=== PATIENT | male | born 1965 | race African-American/Black ===

== ENCOUNTER 2017-08-09 11:11 | Observation (INO) | payer OTHER ==
--- NOTE | 2017-08-09 12:27 | PDOC ---
History of Present Illness - General Chief Complaint: Chest Pain Stated Complaint: CHEST PAIN Time Seen by Provider: 08/09/17 12:05 History Source: Patient Exam Limitations: No Limitations - History of Present Illness Initial Comments: 08/09/17 12:22 51yo M with only history of being pre-diabetic who presents today with L anterior intermittent chest discomfort. Pt states he's had several episodes today which first started while he was watching TV. He states he had some discomfort alongside of diaphoresis which lasted for several seconds and then resolved. Afterwards pt stated he felt a feeling of indigestion and nausea which resolved shortly. Pt reports these episodes happened several times across the day while he was either talking with someone at his [employer] and while driving on the way to the ER. Pt denies any radiation of the pain, prior heart disease, heart disease in his family, history of HTN and history of HLD. Pt denies fever/chills, nausea, visual changes, dizziness, SOB, cough, abdominal pain, dysuria, polyuria, edematous lower extremities in the past, and sick contacts. PCP: Dr. Cruz (who moved to [facility]); in need of PCP Past History - Past Medical History Allergies/Adverse Reactions: Allergies Allergy/AdvReac Type Severity Reaction Status Date / Time No Known Allergies Allergy Verified 08/09/17 11:15 Home Medications: Ambulatory Orders Atorvastatin Ca [Lipitor] 40 mg PO HS 08/09/17 Sitagliptin Phos/Metformin HCl [Janumet 50-500 mg Tablet] 1 each PO BID COPD: No Diabetes: Yes - Surgical History Appendectomy: Yes - Suicide/Smoking/Psychosocial Hx Smoking History: Never smoked Have you smoked in the past 12 months: No Information on smoking cessation initiated: No Hx Alcohol Use: No Drug/Substance Use Hx: No Substance Use Type: None Review of Systems - Review of Systems Able to Perform ROS?: Yes Constitutional: Yes: Diaphoresis. No: Chills, Fever, Malaise, Night Sweats, Weakness HEENTM: No: Blurred Vision, Nose Congestion, Throat Pain Respiratory: No: Cough, Shortness of Breath, SOB with Exertion, Wheezing Cardiac (ROS): Yes: Lightheadedness, Palpitations, Chest Tightness. No: Chest Pain, Syncope ABD/GI: Yes: Nausea, Abdominal cramping. No: Constipated, Diarrhea, Poor Fluid Intake, Vomiting : No: Dysuria, Frequency, Flank Pain Musculoskeletal: No: Back Pain, Neck Pain Integumentary: No: Rash Neurological: No: Headache, Paresthesia, Tingling, Dizziness Psychiatric: No: Anxiety, Depression Hematologic/Lymphatic: No: Easy Bleeding, Easy Bruising *Physical Exam - Vital Signs Last Vital Signs Temp Pulse Resp BP Pulse Ox 98.0 F 100 H 18 142/83 100 08/09/17 11:17 08/09/17 11:17 08/09/17 11:17 08/09/17 11:17 08/09/17 11:17 - Physical Exam Comments: 08/09/17 12:27 GEN: NAD, awake, alert, sitting in bed HEENT: EOMI, REZA, sclera anicteric with some conjunctive injections, moist mucosa Neck: No JVD, Soft, No carotid bruits LUNGS: CTA bilaterally CARDIAC: Tachycardic with regular rhythm no murmurs appreciated ABD: Soft, NT/ND, normoactive BS, no guarding, no rebound EXT: No edema, warm, 2+ DP pulses Heart Score/ECG Review - History History: Highly suspicious - Electrocardiogram EKG: Normal - Age Age: 45-65 - Risk Factors Risk Factors Heart Score: Yes Hx Diabetes Based on the list above the patient has:: 1-2 risk factors - Troponin Troponin: </= normal limit - Score Heart Score - Total: 4 #1 08/09/17 12:30 Sinus tachycardia @ 106bpm, normal axis, normal R-wave progression, MA interval 128ms, no ST abnormalities, no delta waves appreciated, QTc 456ms, no evidence of PVCs ED Treatment Course - LABORATORY CBC & Chemistry Diagram: 08/09/17 12:30 08/09/17 12:20 Medical Decision Making - Medical Decision Making 08/09/17 12:26 Highly suspicious for PVC vs. PAF vs. PAC --R/O ACS episodes --CBC, CMP, Cardiac profile, EKG, CXR --Doubt PE (normal saturation; no risk factors for DVT/coagualopathy) 08/09/17 12:30 EKG - Sinus tachycardia @ 106bpm, normal axis, normal R-wave progression, MA interval 128ms, no ST abnormalities, no delta waves appreciated, QTc 456ms, no evidence of PVCs 08/09/17 14:11 Pt remains without any complaints, Labs unremarkable including cardiac profile HEART Score 4 currently --Will likely obs due for cardiac evaluation with r/o ACS --Most likely will need to be discharged with Holter monitor 08/09/17 14:33 Pt previously took ASA 162mg at home prior to coming to the hospital Contacted admitting team for ACS r/o *DC/Admit/Observation/Transfer Diagnosis at time of Disposition: ACS (acute coronary syndrome) - Discharge Dispostion Condition at time of disposition: Stable Admit: Yes - Referrals - Patient Instructions - Post Discharge Activity
[2017-08-09 13:29] LABS: BASO % 0.4 % (0-2.0); EOS % 0.4 % (0-4.5); HEMATOCRIT 44.7 % (35.4-49); HEMOGLOBIN 15.1 GM/dL (11.7-16.9); LYMPH % 14.5 % (8-40); MCH 28.1 pg (25.7-33.7); MCHC 33.7 g/dl (32.0-35.9); MEAN CELL VOLUME 83.2 fl (80-96); MEAN PLT VOLUME 8.1 fl (7.5-11.1); MONO % 5.2 % (3.8-10.2); NEUT % 79.5 % (42.8-82.8); PLATELET COUNT 272 K/MM3 (134-434); RBC 5.38 M/mm3 (4.00-5.60); RDW 13.4 % (11.9-15.9); WHITE BLOOD COUNT 11.4 K/mm3 (4.0-10.0)
--- NOTE | 2017-08-09 13:35 | PDOC ---
Attending Attestation - Resident Resident Name: Дмитрий Thomas - ED Attending Attestation I have performed the following: I have examined & evaluated the patient, The case was reviewed & discussed with the resident, I agree w/resident's findings & plan, Exceptions are as noted - Medical Decision Making 08/09/17 14:37 51-year-old male with a history of diabetes presents emergency Department with 3 episodes of left-sided chest pain associated with generalized weakness and diaphoresis. Vitals initially with tachycardia to 100, now heart rate is normal. EKG is nonischemic. Differential includes acute coronary syndrome, heart score is 4. PE is a thought given tachycardia, however patient denies shortness of breath and has no known PE risk factors. Patient also not hypoxic. Plan -labs -xr -asa 325mg -admit obs <Kedar Awana - Last Filed: 08/09/17 14:36> - HPI HPI: 08/09/17 14:39 The patient is a 51 year old male, with a significant past medical history of NIDDM, who presents to the emergency department with left anterior chest discomfort since earlier this morning. The patient reports several episodes which began while he was watching TV earlier today. He reports initial episode of 10 seconds of sharp LSCP followed by diaphoresis. After that, he tried to go to [employer] at which point he had a longer episode of CP, this time followed by generalized weakness and diaphoresis again. On the way to the ED, he had a 3rd episode while driving. He reports associated nausea and indigestion which occurred along with each episode but have since resolved. He denies any radiation of pain. The patient denies fever, chills, palpitations, headache, cough, shortness of breath, vomiting, diarrhea, constipation, abdominal pain, dysuria or lower extremity edema. He denies any history of hypertension, dyslipidemia or heart disease. The patient denies any sick contacts or any recent travel. Denies history of smoking. Does not have a PMD as his PMD in the [place] moved 6 months ago. Allergies: None reported. Past Surgical History: Appendectomy. Social History: Non-smoker. Denies alcohol or drug use. PCP: None. - Physicial Exam PE: 08/09/17 14:40 GENERAL: Awake, alert, and fully oriented, in no acute distress. HEAD: No signs of trauma. EYES: PERRLA, EOMI, sclera anicteric, conjunctiva clear. ENT: Auricles normal inspection, hearing grossly normal, nares patent, oropharynx clear without exudates. Moist mucosa. NECK: Normal ROM, supple, no lymphadenopathy, JVD or masses. LUNGS: Breath sounds equal, clear to auscultation bilaterally. No wheezes, and no crackles. HEART: Tachycardic, normal S1 and S2, no murmurs, rubs or gallops. No reproducible CP. ABDOMEN: Soft, nontender, normoactive bowel sounds. No guarding, no rebound. No masses. EXTREMITIES: Normal range of motion, no edema. No clubbing or cyanosis. No cords , erythema, or tenderness. BACK: No midline spinal tenderness in cervical/thoracic/lumbar region. NEUROLOGICAL: Normal speech, cranial nerves intact, negative pronator drift, 5/ 5 strength in all 4 extremities, normal sensation to light touch in all 4 extremities, normal cerebellar exam, normal gait, normal reflexes and tone. SKIN: Warm, dry, normal turgor, no rashes or lesions noted. - Medical Decision Making 08/09/17 14:41 Documentation prepared by Leona Gabriel, acting as medical assisting instructor for Say Awan MD. <Leona Gabriel - Last Filed: 08/09/17 14:41> Heart Score/ECG Review - History History: Highly suspicious - Electrocardiogram EKG: Normal - Age Age: 45-65 - Risk Factors Risk Factors Heart Score: Yes Hx Diabetes Based on the list above the patient has:: 1-2 risk factors - Troponin Troponin: </= normal limit - Score Heart Score - Total: 4 #1 08/09/17 14:37 Twelve-lead EKG was performed and reviewed by me. Sinus tachycardia, rate 106. Normal axis and intervals. No ST elevations. <Say Awan - Last Filed: 08/09/17 14:36>
[2017-08-09 13:55] LABS: ALBUMIN 3.8 g/dl (3.4-5.0); ANION GAP 10 (8-16); BLOOD UREA NITROGEN 8 mg/dL (7-18); CALCIUM 9.2 mg/dL (8.5-10.1); CHLORIDE 103 mmol/L (98-107); CO2 25 mmol/L (21-32); CREATININE 0.9 mg/dL (0.7-1.3); GLUCOSE,RANDOM 188 mg/dL (74-106); POTASSIUM 4.2 mmol/L (3.5-5.1); SGOT/AST 23 U/L (15-37); SGPT/ALT 30 U/L (12-78); SODIUM 138 mmol/L (136-145)
[2017-08-09 14:06] LABS: ALK PHOS 97 U/L (45-117); BILIRUBIN,TOTAL 0.4 mg/dL (0.2-1.0); TOT PROT 8.3 g/dl (6.4-8.2)
[2017-08-09] MEDS ORDERED: ASPIRIN 81 MG CHEWABLE TABLETS PO ONE (14:20)
[2017-08-09] MEDS ORDERED: ASPIRIN COATED 81 MG TABLET.EC ONE (14:30)
[2017-08-09] MEDS ORDERED: ASPIRIN 81 MG CHEWABLE TABLETS ONE (14:31)
--- NOTE | 2017-08-09 17:18 | HP ---
CHIEF COMPLAINT: Chest pain PCP: Dr. Cruz HISTORY OF PRESENT ILLNESS: 51 y.o. M with pmh of DM, HLD, gastritis presented with intermittent chest pain. Patient had an episode of anterior chest pain, nonradiating that lasted a few seconds this morning. Patient took 2 Asa 81mg and the pain resolved. Patient went to [employer] later on in the day and had the same chest pain that occured a few times intermittently for a few seconds each time. After the pain resolved, patient was diaphoretic and nauseous. Patient decided to come to the ER after. Patient endorses 1 prior episode of chest pain months ago at work that was non exertional. Patient also states he had an exercise stress test many yrs ago with his PMD for gastritis, he states the test was normal. Patient denies fever, chills, shortness of breath, dyspnea on exertion, vomiting, diarrhea, constipation, urinary sx. ER course was notable for: (1)trops negative x1 (2)EKG- Sinus tachycardia, no st changes (3)cxr- unremarkable Recent Travel: denies PAST MEDICAL HISTORY: DM, HLD, gastritis PAST SURGICAL HISTORY: appendectomy-- many yrs prior Social History: Smoking: denies Alcohol:rarely Drugs: denuies Family History: Allergies No Known Allergies Allergy (Verified 08/09/17 11:15) HOME MEDICATIONS: Home Medications Home Medication List Medication Instructions Recorded Confirmed Type Atorvastatin Ca [Lipitor] 40 mg PO HS 08/09/17 08/09/17 History Sitagliptin Phos/Metformin HCl 1 each PO BID 08/09/17 08/09/17 History [Janumet 50-500 mg Tablet] REVIEW OF SYSTEMS CONSTITUTIONAL: Absent: fever, chills, diaphoresis, generalized weakness, malaise, loss of appetite, weight change HEENT: Absent: rhinorrhea, nasal congestion, throat pain, throat swelling, difficulty swallowing, mouth swelling, ear pain, eye pain, visual changes CARDIOVASCULAR: Absent: chest pain, syncope, palpitations, irregular heart rate, lightheadedness , peripheral edema RESPIRATORY: Absent: cough, shortness of breath, dyspnea with exertion, orthopnea, wheezing, stridor, hemoptysis GASTROINTESTINAL: Absent: abdominal pain, abdominal distension, nausea, vomiting, diarrhea, constipation, melena, hematochezia GENITOURINARY: Absent: dysuria, frequency, urgency, hesitancy, hematuria, flank pain, genital pain MUSCULOSKELETAL: Absent: myalgia, arthralgia, joint swelling, back pain, neck pain SKIN: Absent: rash, itching, pallor HEMATOLOGIC/IMMUNOLOGIC: Absent: easy bleeding, easy bruising, lymphadenopathy, frequent infections ENDOCRINE: Absent: unexplained weight gain, unexplained weight loss, heat intolerance, cold intolerance NEUROLOGIC: Absent: headache, focal weakness or paresthesias, dizziness, unsteady gait, seizure, mental status changes, bladder or bowel incontinence PSYCHIATRIC: Absent: anxiety, depression, suicidal or homicidal ideation, hallucinations. PHYSICAL EXAMINATION Vital Signs - 24 hr 08/09/17 11:17 Temperature 98.0 F Pulse Rate 100 H Respiratory 18 Rate Blood Pressure 142/83 O2 Sat by Pulse 100 Oximetry (%) GENERAL: Awake, alert, and fully oriented, in no acute distress. HEAD: Normal with no signs of trauma. EYES: Pupils equal, round and reactive to light, extraocular movements intact, sclera anicteric, conjunctiva clear. No lid lag. EARS, NOSE, THROAT: Oropharynx clear without exudates. Moist mucous membranes. NECK: Normal range of motion, supple without lymphadenopathy, JVD, or masses. LUNGS: Breath sounds equal, clear to auscultation bilaterally. No wheezes, and no crackles. No accessory muscle use. HEART: Regular rate and rhythm, normal S1 and S2 without murmur, rub or gallop. No chest wall tenderness ABDOMEN: Soft, nontender, not distended, normoactive bowel sounds, no guarding, no rebound, no masses. No hepatomegaly or splenomegaly. MUSCULOSKELETAL: Normal range of motion at all joints. No bony deformities or tenderness. No CVA tenderness. UPPER EXTREMITIES: 2+ pulses, warm, well-perfused. No cyanosis. No clubbing. No peripheral edema. LOWER EXTREMITIES: 2+ pulses, warm, well-perfused. No calf tenderness. No peripheral edema. NEUROLOGICAL: Cranial nerves II-XII intact. 5/5 strength b/l, sensation intact b/l PSYCHIATRIC: Cooperative. Good eye contact. Appropriate mood and affect. SKIN: Warm, dry, normal turgor, no rashes or lesions noted, normal capillary refill. Laboratory Results - last 24 hr 08/09/17 08/09/17 12:20 12:30 WBC 11.4 H RBC 5.38 Hgb 15.1 Hct 44.7 MCV 83.2 MCH 28.1 MCHC 33.7 RDW 13.4 Plt Count 272 MPV 8.1 Neutrophils % 79.5 Lymphocytes % 14.5 Monocytes % 5.2 Eosinophils % 0.4 Basophils % 0.4 Sodium 138 Potassium 4.2 Chloride 103 Carbon Dioxide 25 Anion Gap 10 BUN 8 Creatinine 0.9 Creat Clearance w eGFR > 60 Random Glucose 188 H Calcium 9.2 Total Bilirubin 0.4 AST 23 ALT 30 Alkaline Phosphatase 97 Creatine Kinase 148 Troponin I < 0.02 Total Protein 8.3 H Albumin 3.8 ASSESSMENT/PLAN: 51 year old M with pmh of diabetes and gastritis presented with intermittent chest pain placed into obs for r/o acs #Chest pain, R/o ACS vs gastritis -tele obs -trend trops/ekg -a1c -lipid profile -Stress test, if positive will consult cardio #Gastritis -protonix 40 mg daily #Diabetes mellitus -BGM achs -ISS achs #HLD -Continue Lipitor 40 mg po hs #FEN/GI -no ivf -wnl -diabetic diet #PPx -early ambulation Dispo: tele obs Visit type - Emergency Visit Emergency Visit: Yes Care time: The patient presented to the Emergency Department on the above date and was hospitalized for further evaluation of their emergent condition. - New Patient This patient is new to me today: Yes Date on this admission: 08/09/17 - Critical Care Critical Care patient: No Hospitalist Screening - Colonoscopy Questionnaire Colonoscopy Questionnaire: Colonoscopy Questionnaire - Patient: 50 - 75 years old and never had a screening colonoscopy: Unknown History of colon or rectal polyps, or CA: Unknown History of IBD, Crohn's disease or UC: Unknown History of abdominal radiation therapy as a child: Unknown - Relative: 1 with colon or rectal CA, or polyps at age 60 or younger: Unknown Colon or rectal CA diagnosed at age 45 or younger: Unknown Multiple relatives with colon or rectal CA: Unknown - Outcome: Screening Result: Negative Screen
--- NOTE | 2017-08-09 18:09 | PN ---
Teaching Attending Note Name of Resident: Phan Weber ATTENDING PHYSICIAN STATEMENT I saw and evaluated the patient. I reviewed the resident's note and discussed the case with the resident. I agree with the resident's findings and plan as documented. SUBJECTIVE CC: CP HPI: 51 y/o pleasant gentleman with h/o DM, Hyperlipidemia and GERD who presented with CP. today he had left sided sharp CP while watching TV in am , lasted few seconds but was sweaty after that. in [employer] later this am , he developed 2 separate episodes back to back of same CP this time with sweating and weakness/fatigue. on the way to ER he had another episode . he denies exertional CP , but has SOB when he climbs more than 2 flights of stairs. last stress by PCP 5 years ago and reportedly is neg. Now he is CP free, no SOB , no palpitations , no DELGADO , no light headedness . he denies recent sx or immobilization. OBJECTIVE: NAD , AAOx3. MMM,, no JVD . Nl oropharynx CV: RRR, no MRG . HR in 70s Lungs: CTAB Ext: no edema or erythema in upper or lower extremities. Abd: soft, Nt, ND ,NL BS neuro: EOMI, round equal pupils reactive to light . tongue and uvula at mid line . sensation to light touch nL. strength 5/5 in upper and lower ext proximally and distally. reflexes: 2+ knee jerk and biceps b/l. ASSESSMENT AND PLAN: 51 y/o pleasant gentleman with h/o DM, Hyperlipidemia and GERD who presented with CP. 1- CP : description is not typical for GERD or ACS. could be MS . but due to his risk factors or DM and Hyperlipidemia and being a male, CAD can't be completely excluded . PE is not in DDx as he is not hypoxic, not tachycardic now ( was 100 at presentation ) , no pleuritic pain and no risk factors like recent sx or immobilization or cancer. WELLS score for PE 1.5, with low clinical suspicion , no further w/u indicated EKG with no ST or TW changes. - trend trop - check stress test ( exercise+ nuclear ) tomorrow if trop remains NL. - cont statin 2- Dm , SSI dispo observe over night
[2017-08-09] MEDS: INSULIN SLIDING SCALE (NOVOLOG) 1 VIAL SQ SCH (21:39)
[2017-08-09] MEDS ORDERED: ATORVASTATIN CA 40 MG TABLET (FP) PO SCH (22:00)
[2017-08-10 00:46] VITALS: BMI 27.5
[2017-08-10] MEDS: INSULIN SLIDING SCALE (NOVOLOG) 1 VIAL SQ SCH ×2 (06:34→11:00)
[2017-08-10 07:40] LABS: BASO % 0.2 % (0-2.0); EOS % 1.2 % (0-4.5); HEMATOCRIT 41.4 % (35.4-49); HEMOGLOBIN 14.3 GM/dL (11.7-16.9); LYMPH % 31.8 % (8-40); MCH 28.4 pg (25.7-33.7); MCHC 34.5 g/dl (32.0-35.9); MEAN CELL VOLUME 82.2 fl (80-96); MONO % 7.7 % (3.8-10.2); NEUT % 59.1 % (42.8-82.8); PLATELET COUNT 268 K/MM3 (134-434); RBC 5.04 M/mm3 (4.00-5.60); RDW 13.1 % (11.9-15.9); WHITE BLOOD COUNT 9.4 K/mm3 (4.0-10.0)
[2017-08-10 07:49] LABS: ANION GAP 8 (8-16); BLOOD UREA NITROGEN 9 mg/dL (7-18); CALCIUM 8.8 mg/dL (8.5-10.1); CHLORIDE 104 mmol/L (98-107); CO2 28 mmol/L (21-32); GLUCOSE,RANDOM 112 mg/dL (74-106); POTASSIUM 4.1 mmol/L (3.5-5.1); SODIUM 140 mmol/L (136-145)
[2017-08-10 07:51] LABS: CREATININE 0.9 mg/dL (0.7-1.3)
[2017-08-10 07:57] LABS: CHOLESTEROL 124 mg/dL (50-200); HDL CHOLESTEROL 29 mg/dL (40-60); TRIGLYCERIDES 120 mg/dL (35-160)
--- NOTE | 2017-08-10 09:32 | EKG ---
Test Reason : Blood Pressure : / mmHG Vent. Rate : 082 BPM Atrial Rate : 082 BPM P-R Int : 146 ms QRS Dur : 086 ms QT Int : 372 ms P-R-T Axes : 059 -14 027 degrees QTc Int : 434 ms NORMAL SINUS RHYTHM NORMAL ECG WHEN COMPARED WITH ECG OF 09-AUG-2017 11:23, NO SIGNIFICANT CHANGE WAS FOUND Confirmed by EDGARDO ESCALONA MD ([id number]) on 08/10/2017 9:32:03 AM Referred By: Confirmed By:EDGARDO ESCALONA MD
--- NOTE | 2017-08-10 09:43 | EKG ---
Test Reason : Blood Pressure : / mmHG Vent. Rate : 106 BPM Atrial Rate : 106 BPM P-R Int : 128 ms QRS Dur : 080 ms QT Int : 344 ms P-R-T Axes : 057 -09 046 degrees QTc Int : 456 ms SINUS TACHYCARDIA OTHERWISE NORMAL ECG NO PREVIOUS ECGS AVAILABLE Confirmed by EDGARDO ESCALONA MD ([id number]) on 08/10/2017 9:43:05 AM Referred By: Confirmed By:EDGARDO ESCALONA MD
[2017-08-10] MEDS ORDERED: PANTOPRAZOLE 40 MG TABLET (FP) PO SCH (10:00)
[2017-08-10 13:51] VITALS: BP 138/80; PULSE 94; TEMP 99.4
--- NOTE | 2017-08-10 14:35 | DS ---
Physical Exam: Selected Entries 08/09/17 08/10/17 08/10/17 11:17 09:00 13:50 Temperature 99.4 F Pulse Rate 100 H 94 H Respiratory 16 Rate Blood Pressure 138/80 O2 Sat by Pulse 96 Oximetry (%) Oxygen Delivery Room Air Method Laboratory Tests 08/09/17 08/09/17 08/10/17 12:20 18:31 00:01 WBC Hgb Hct Plt Count Sodium Potassium Chloride Carbon Dioxide Anion Gap BUN Creatinine Random Glucose Hemoglobin A1c % Troponin I < 0.02 < 0.02 < 0.02 Triglycerides Cholesterol Total LDL Cholesterol HDL Cholesterol 08/10/17 08/10/17 08/10/17 07:07 07:07 07:07 WBC 9.4 Hgb 14.3 Hct 41.4 Plt Count 268 Sodium 140 Potassium 4.1 Chloride 104 Carbon Dioxide 28 Anion Gap 8 BUN 9 Creatinine 0.9 Random Glucose 112 H D Hemoglobin A1c % Troponin I Triglycerides 120 Cholesterol 124 Total LDL Cholesterol 89 HDL Cholesterol 29 L 08/10/17 07:07 WBC Hgb Hct Plt Count Sodium Potassium Chloride Carbon Dioxide Anion Gap BUN Creatinine Random Glucose Hemoglobin A1c % 8.3 H Troponin I Triglycerides Cholesterol Total LDL Cholesterol HDL Cholesterol cxr-negative stress test- no ischemia Ekg- nsr HOSPITAL COURSE: Date of Admission:08/09/17 Date of Discharge: 08/10/17 51 y.o. M with pmh of DM, HLD, gastritis presented with intermittent chest pain observed for r/o acs. Troponins negative x 3. Patient underwent stress test, which was negative. Patient will f/u with pcp for chronic medical conditions. Minutes to complete discharge: 35 Discharge Summary Reason For Visit: ACUTE CORONARY SYNDROME Current Active Problems Diabetes mellitus (Chronic) Hyperlipidemia (Chronic) Condition: Stable - Instructions Diet, Activity, Other Instructions: You were observed in the hospital for chest pain. Your stress test results were negative. Please follow up with a primary care doctor within 1 week. A referral to our resident clinic has been provided for you (Dr. Francis) Continue your home medications as prescribed If you have chest pain, shortness of breath, or any new/worsening symptoms please come back to the hospital immediately. Referrals: Nas Francis MD [Staff Physician] - Disposition: HOME - Home Medications Comprehensive Discharge Medication List: Ambulatory Orders Atorvastatin Ca [Lipitor] 40 mg PO HS 08/09/17 Sitagliptin Phos/Metformin HCl [Janumet 50-500 mg Tablet] 1 each PO BID This patient is new to me today: No Emergency Visit: Yes ED Registration Date: 08/09/17 Care time: The patient presented to the Emergency Department on the above date and was hospitalized for further evaluation of their emergent condition. Critical Care patient: No - Discharge Referral Referred to [facility] Med P.C.: No
--- NOTE | 2017-08-10 14:46 | PN ---
Teaching Attending Note Name of Resident: Phan Weber ATTENDING PHYSICIAN STATEMENT I saw and evaluated the patient. I reviewed the resident's note and discussed the case with the resident. I agree with the resident's findings and plan as documented. SUBJECTIVE: No cp or sob. no fever or chills. OBJECTIVE: NAD , AAOx3. CV: RRR, no MRG . Lungs: CTAB Ext: no edema or erythema ASSESSMENT AND PLAN: 51 y/o pleasant gentleman with h/o DM, Hyperlipidemia and GERD who presented with CP. 1- Atypical CP . noah MS stress test neg . no signs of ischemic on EKG and trop LDL 89 , has not been taking lipitor in past 2 -3 weeks . advised to comply 2- Dm , cont Janumet at [place] Establish care with PCP at [place] Dispo : [facility]
== END 2017-08-10 16:36 | disposition home or self-care (01) ==
LOC: JER 11:11 → JERBED 16:57 → J4S 20:27
PROVIDERS: ADMIT Internal Medicine; ATTEND Internal Medicine
DX: I24.9 Acute ischemic heart disease, unspecified (principal); R00.0 Tachycardia, unspecified; R07.89 Other chest pain; E11.9 Type 2 diabetes mellitus without complications; E78.5 Hyperlipidemia, unspecified; K21.9 Gastro-esophageal reflux disease without esophagitis; Z79.84 Long term (current) use of oral hypoglycemic drugs
CPT/HCPCS: 36415; 71045-TC-FY; 78452-TC; 80048; 80053; 80061; 82550; 82962; 83036; 83721; 84484; 85025; 93005; 93010; 93017; 99285-25; A9502; G0378

== ENCOUNTER 2019-09-29 06:52 | Inpatient (IN) | payer OTHER ==
[2019-09-29 07:17] VITALS: BMI 27.3
[2019-09-29] MEDS ORDERED: ONDANSETRON 4 MG/2 ML VIAL IVPUSH ONE (07:31)
[2019-09-29] MEDS ORDERED: MAG HYDROX/AL HYDROX/SIMETH 30 ML UNIT-DOSE CUP PO ONE (07:31)
[2019-09-29] MEDS ORDERED: SODIUM CHLORIDE 1,000 ML IV STA ×2 (07:31→09:11)
[2019-09-29] MEDS ORDERED: FAMOTIDINE 20 MG/50 ML IVPB 20 MG/50 ML MG IVPB ONE ×3 (07:31→08:16)
[2019-09-29] MEDS ORDERED: ACETAMINOPHEN 1000 MG/100 ML VIAL (NON FORMULARY) IVPB ONE (07:49)
[2019-09-29] MEDS ORDERED: ACETAMINOPHEN INJECTION 100 ML IVPB ONE (07:49)
[2019-09-29] MEDS ORDERED: MAG HYDROX/AL HYDROX/SIMETH 30 ML UNIT-DOSE CUP ONE (07:50)
[2019-09-29] MEDS ORDERED: morphine CARPU-JECT 4 MG/1 ML DISP.SYRIN IVPUSH ONE (08:37)
[2019-09-29 08:44] LABS: BASO % 0.6 % (0-2.0); HEMATOCRIT 50.1 % (35.4-49); HEMOGLOBIN 16.5 GM/dL (11.7-16.9); LYMPH % 6.5 % (8-40); MCH 28.1 pg (25.7-33.7); MEAN CELL VOLUME 85.2 fl (80-96); MEAN PLT VOLUME 8.1 fl (7.5-11.1); MONO % 5.8 % (3.8-10.2); NEUT % 87.1 % (42.8-82.8); PLATELET COUNT 341 K/MM3 (134-434); RBC 5.88 M/mm3 (4.00-5.60); RDW 13.2 % (11.9-15.9); WHITE BLOOD COUNT 24.7 K/mm3 (4.0-10.0)
[2019-09-29 08:52] LABS: INR 1.13 (0.83-1.09); PROTHROMBIN TIME (PATIENT) 13.3 SEC (9.7-13.0)
[2019-09-29 08:55] LABS: ACTIVATED PTT 21.5 SECONDS (25.2-36.5)
[2019-09-29] MEDS ORDERED: morphine SULFATE 4 MG/ML VIAL ONE (09:00)
[2019-09-29] MEDS ORDERED: CEFTRIAXONE 2,000 MG in DEXTROSE 5%-WATER - 50 ML IVPB ONE (09:12)
[2019-09-29 09:16] LABS: ALK PHOS 148 U/L (45-117); ANION GAP 9 MMOL/L (8-16); BLOOD UREA NITROGEN 14.3 mg/dL (7-18); CALCIUM 9.5 mg/dL (8.5-10.1); CHLORIDE 103 mmol/L (98-107); CO2 29 mmol/L (21-32); GLUCOSE,RANDOM 256 mg/dL (74-106); POTASSIUM 3.8 mmol/L (3.5-5.1); SGOT/AST 95 U/L (15-37); SGPT/ALT 92 U/L (13-61); SODIUM 141 mmol/L (136-145)
[2019-09-29 09:28] LABS: LIPASE 8257 U/L (73-393)
[2019-09-29] MEDS ORDERED: LACTATED RINGERS SOLUTION 1,000 ML/1,000 ML INFUS.BAG IV SCH ×3 (09:45→10:45)
[2019-09-29] MEDS ORDERED: CEFTRIAXONE 2 GM/100 ML BAG IVPB ONE (10:16)
[2019-09-29] MEDS ORDERED: ACETAMINOPHEN 1000 MG/100 ML VIAL (NON FORMULARY) IVPB PRN (10:48)
[2019-09-29] MEDS ORDERED: ONDANSETRON 4 MG/2 ML VIAL IM PRN (10:50)
[2019-09-29] MEDS ORDERED: ENOXAPARIN NA (PORCINE) 40 MG/0.4 ML DISP.SYRIN SQ SCH (11:00)
[2019-09-29 12:14] LABS: ANISOCYTOSIS 1+; MACROCYTOSIS 0; PLATELET ESTIMATE NORMAL; TEAR DROP CELLS 1+
[2019-09-29] MEDS ORDERED: HYDROmorphone HCL 2 MG TABLET PO ONE (12:41)
[2019-09-29] MEDS ORDERED: DEXTROSE 5%-WATER - 50 ML IVPB ONE ×2 (14:06→17:08)
[2019-09-29] MEDS ORDERED: PIPERACILLIN/TAZOBACTAM 3.375 GM VIAL IVPB ONE ×2 (14:06→17:08)
[2019-09-29] MEDS: PIPERACILLIN/TAZOB 3.375 GM 3.375 GM in DEXTROSE 5%-WATER - 50 ML IVPB SCH ×2 (14:10→17:16)
[2019-09-29] MEDS: INSULIN SLIDING SCALE (NOVOLOG) 1 VIAL SQ SCH ×3 (14:11→21:44)
[2019-09-29] MEDS ORDERED: MORPHINE SULFATE 2 MG/ML VIAL IVPUSH ONE (19:20)
[2019-09-29] MEDS ORDERED: ONDANSETRON 4 MG/2 ML VIAL IVPUSH PRN (21:07)
[2019-09-29] MEDS ORDERED: INSULIN (NOVOLOG) ASPART 100 UNITS/ML 10ML VIAL ONE (21:40)
[2019-09-29] MEDS: LACTATED RINGERS SOLUTION 1,000 ML/1,000 ML INFUS.BAG IV SCH (21:46)
[2019-09-30] MEDS ORDERED: SODIUM CHLORIDE 500 ML IV STA (00:23)
[2019-09-30] MEDS ORDERED: PIPERACILLIN/TAZOBACTAM 3.375 GM VIAL IVPB ONE ×2 (00:47→08:19)
[2019-09-30] MEDS ORDERED: DEXTROSE 5%-WATER - 50 ML IVPB ONE ×2 (00:48→08:19)
[2019-09-30] MEDS ORDERED: MORPHINE SULFATE 2 MG/ML VIAL IVPUSH PRN (01:00)
[2019-09-30] MEDS: LACTATED RINGERS SOLUTION 1,000 ML/1,000 ML INFUS.BAG IV SCH ×5 (01:16→21:29)
[2019-09-30] MEDS: PIPERACILLIN/TAZOB 3.375 GM 3.375 GM in DEXTROSE 5%-WATER - 50 ML IVPB SCH (03:28)
[2019-09-30] MEDS ORDERED: MORPHINE SULFATE 2 MG/ML VIAL IVPUSH ONE (05:18)
[2019-09-30] MEDS ORDERED: LACTATED RINGERS SOLUTION 1,000 ML/1,000 ML INFUS.BAG IV SCH ×2 (05:21→09:00)
[2019-09-30] MEDS ORDERED: ACETAMINOPHEN 1000 MG/100 ML VIAL (NON FORMULARY) IVPB PRN (05:28)
[2019-09-30] MEDS ORDERED: ONDANSETRON 4 MG/2 ML VIAL IVPUSH PRN ×2 (05:28→20:22)
[2019-09-30] MEDS ORDERED: morphine SULFATE 4 MG/ML VIAL IVPUSH PRN ×3 (05:47→20:22)
[2019-09-30] MEDS: INSULIN SLIDING SCALE (NOVOLOG) 1 VIAL SQ SCH ×4 (06:19→23:32)
[2019-09-30 06:57] LABS: BASO % 0.1 % (0-2.0); HEMOGLOBIN 17.6 GM/dL (11.7-16.9); LYMPH % 4.8 % (8-40); MCH 27.7 pg (25.7-33.7); MCHC 32.5 g/dl (32.0-35.9); MEAN CELL VOLUME 85.2 fl (80-96); MEAN PLT VOLUME 8.4 fl (7.5-11.1); MONO % 7.8 % (3.8-10.2); NEUT % 87.3 % (42.8-82.8); PLATELET COUNT 260 K/MM3 (134-434); RBC 6.33 M/mm3 (4.00-5.60); RDW 14.1 % (11.9-15.9)
[2019-09-30 07:01] LABS: WHITE BLOOD COUNT 30.3 K/mm3 (4.0-10.0)
[2019-09-30 07:09] LABS: CHOLESTEROL 140 mg/dL (50-200); HDL CHOLESTEROL 48 mg/dL (40-60); LDL CHOLESTEROL (ONLY SJRH) 88 mg/dL (5-100); TRIGLYCERIDES 83 mg/dL (0-150)
[2019-09-30] MEDS ORDERED: PT OWN MED DRAWER 7, Y5N ONE ×2 (07:15→16:39)
[2019-09-30 09:16] LABS: ALBUMIN 2.9 g/dl (3.4-5.0); ALK PHOS 109 U/L (45-117); ANION GAP 14 MMOL/L (8-16); BILIRUBIN,TOTAL 2.2 mg/dL (0.2-1); BLOOD UREA NITROGEN 14.5 mg/dL (7-18); CALCIUM 8.6 mg/dL (8.5-10.1); CHLORIDE 111 mmol/L (98-107); CO2 17 mmol/L (21-32); GLUCOSE,RANDOM 199 mg/dL (74-106); LIPASE > 1500 U/L (73-393); POTASSIUM 4.2 mmol/L (3.5-5.1); SGOT/AST 103 U/L (15-37); SGPT/ALT 124 U/L (13-61); SODIUM 142 mmol/L (136-145); TOT PROT 6.2 g/dl (6.4-8.2)
[2019-09-30] MEDS ORDERED: PIPERACILLIN/TAZOB 3.375 GM 3.375 GM in DEXTROSE 5%-WATER - 50 ML IVPB SCH ×2 (10:00→18:00)
[2019-09-30] MEDS ORDERED: ENOXAPARIN NA (PORCINE) 40 MG/0.4 ML DISP.SYRIN SQ SCH (10:00)
[2019-09-30 10:09] LABS: HELMET CELLS 0; HOWELL-JOLLY BODIES 0; MACROCYTOSIS 0; OVALOCYTE 0; PLATELET ESTIMATE NORMAL; ROULEAU 0; SICKELED CELLS 0; TARGET CELLS 0; TEAR DROP CELLS 0; TOXIC GRANULATION 0
[2019-09-30 10:56] LABS: ANISOCYTOSIS 1+
[2019-09-30] MEDS ORDERED: morphine SULFATE 4 MG/ML VIAL IVPUSH SCH (11:45)
[2019-09-30] MEDS ORDERED: MEROPENEM 1 GM VIAL (RESTRICTED TO ID) IVPB ONE (17:20)
[2019-09-30] MEDS ORDERED: DEXTROSE 5%-WATER 100 ML IVPB ONE (17:21)
[2019-09-30] MEDS ORDERED: MEROPENEM 1 GM in DEXTROSE 5%-WATER 100 ML IVPB SCH (18:00)
[2019-09-30] MEDS: MUPIROCIN 2% TOPICAL OINTMENT FOR DECOLONIZATION NS SCH (21:29)
[2019-09-30] MEDS: CHLORHEXIDINE GLUCONATE 4% CLEANSER FOR DECOLONIZATION TP SCH (21:29)
[2019-09-30] MEDS ORDERED: IBUPROFEN 800 MG/8 ML IJ IVPB ONE (23:00)
[2019-10-01] MEDS ORDERED: MEROPENEM 1 GM VIAL (RESTRICTED TO ID) IVPB ONE ×3 (01:03→22:39)
[2019-10-01] MEDS ORDERED: DEXTROSE 5%-WATER 100 ML IVPB ONE ×3 (01:04→22:39)
[2019-10-01] MEDS: MEROPENEM 1 GM in DEXTROSE 5%-WATER 100 ML IVPB SCH ×3 (01:05→19:00)
[2019-10-01] MEDS: LACTATED RINGERS SOLUTION 1,000 ML/1,000 ML INFUS.BAG IV SCH ×3 (01:08→15:40)
[2019-10-01] MEDS ORDERED: PIPERACILLIN/TAZOB 3.375 GM 3.375 GM in DEXTROSE 5%-WATER - 50 ML IVPB SCH (02:00)
[2019-10-01 05:25] LABS: BASO % 0.1 % (0-2.0); HEMATOCRIT 51.1 % (35.4-49); HEMOGLOBIN 16.4 GM/dL (11.7-16.9); LYMPH % 5.5 % (8-40); MCH 27.7 pg (25.7-33.7); MCHC 32.1 g/dl (32.0-35.9); MEAN CELL VOLUME 86.3 fl (80-96); MEAN PLT VOLUME 8.1 fl (7.5-11.1); MONO % 6.3 % (3.8-10.2); NEUT % 88.1 % (42.8-82.8); PLATELET COUNT 179 K/MM3 (134-434); RBC 5.93 M/mm3 (4.00-5.60); RDW 13.9 % (11.9-15.9); WHITE BLOOD COUNT 28.8 K/mm3 (4.0-10.0)
[2019-10-01 05:54] LABS: ALBUMIN 2.2 g/dl (3.4-5.0); BILIRUBIN,TOTAL 2.4 mg/dL (0.2-1); BLOOD UREA NITROGEN 14.7 mg/dL (7-18); CALCIUM 7.8 mg/dL (8.5-10.1); CREATININE 0.8 mg/dL (0.55-1.3); MAGNESIUM 1.5 mg/dL (1.8-2.4); PHOSPHOROUS 1.5 mg/dL (2.5-4.9); POTASSIUM 3.9 mmol/L (3.5-5.1); TOT PROT 5.2 g/dl (6.4-8.2)
[2019-10-01] MEDS: INSULIN SLIDING SCALE (NOVOLOG) 1 VIAL SQ SCH ×4 (06:25→21:20)
[2019-10-01 06:42] LABS: ARTERIAL BLD GAS O2 SATURATION 96.5 mmHg (95-98); ARTERIAL BLOOD GAS BASE EXCESS -2.9 mmol/L (-2-2); ARTERIAL BLOOD GAS PO2 97.9 mmHg (80-100); ARTERIAL BLOOD GAS pH 7.272 (7.350-7.450)
[2019-10-01 06:55] LABS: ALLENS TEST POSITIVE
[2019-10-01] MEDS ORDERED: KCL 10 MEQ IVPB 10 MEQ/100 ML INFUS.BAG IVPB SCH (08:30)
[2019-10-01] MEDS ORDERED: MAGNESIUM SULF 50% (8.12 MEQ/2 ML-1 GM VIAL) IVPB ONE (08:30)
[2019-10-01] MEDS ORDERED: IBUPROFEN 800 MG/8 ML IJ IVPB ONE (08:58)
[2019-10-01] MEDS ORDERED: POTASSIUM PHOSPHATE 20 MM in DEXTROSE 5%-WATER - 250 ML IVPB ONE (09:00)
[2019-10-01] MEDS ORDERED: POTASSIUM PHOSPHATE 20 MM in SODIUM CHLORIDE 250 ML IVPB ONE (09:00)
[2019-10-01] MEDS: PANTOPRAZOLE SODIUM 40 MG VIAL IVPUSH SCH (09:30)
[2019-10-01] MEDS: ENOXAPARIN NA (PORCINE) 40 MG/0.4 ML DISP.SYRIN SQ SCH (10:12)
[2019-10-01] MEDS: MUPIROCIN 2% TOPICAL OINTMENT FOR DECOLONIZATION NS SCH ×2 (12:06→21:27)
[2019-10-01 12:14] LABS: ANISOCYTOSIS 0; MACROCYTOSIS 0; PLATELET ESTIMATE NORMAL
[2019-10-01] MEDS ORDERED: VASOPRESSIN 20 UNITS/ML VIAL IV ONE (16:35)
[2019-10-01 17:41] LABS: ARTERIAL BLD GAS O2 SATURATION 95.8 mmHg (95-98); ARTERIAL BLOOD GAS BASE EXCESS -1.5 mmol/L (-2-2); ARTERIAL BLOOD GAS PO2 86.4 mmHg (80-100); ARTERIAL BLOOD GAS pH 7.326 (7.350-7.450)
[2019-10-01 17:43] LABS: ALLENS TEST POSITIVE
[2019-10-01 17:44] LABS: VENT MODE S/T
[2019-10-01 17:45] LABS: VENT RATE 14
[2019-10-01] MEDS: CHLORHEXIDINE GLUCONATE 4% CLEANSER FOR DECOLONIZATION TP SCH (21:20)
[2019-10-01] MEDS ORDERED: INDOMETHACIN 50 MG RECTAL SUPPOSITORY PR ONE (21:36)
[2019-10-01] MEDS: morphine SULFATE 4 MG/ML VIAL IVPUSH PRN (21:43)
[2019-10-02] MEDS: MEROPENEM 1 GM in DEXTROSE 5%-WATER 100 ML IVPB SCH ×3 (01:12→17:19)
[2019-10-02] MEDS: morphine SULFATE 4 MG/ML VIAL IVPUSH PRN ×2 (01:42→19:40)
[2019-10-02] MEDS: INSULIN SLIDING SCALE (NOVOLOG) 1 VIAL SQ SCH ×4 (06:42→21:25)
[2019-10-02] MEDS: LACTATED RINGERS SOLUTION 1,000 ML/1,000 ML INFUS.BAG IV SCH ×3 (08:07→19:01)
[2019-10-02 09:46] LABS: BASO % 0.1 % (0-2.0); EOS % 0.1 % (0-4.5); LYMPH % 3.1 % (8-40); MCH 28.1 pg (25.7-33.7); MCHC 32.6 g/dl (32.0-35.9); MEAN CELL VOLUME 86.2 fl (80-96); MEAN PLT VOLUME 7.9 fl (7.5-11.1); MONO % 6.3 % (3.8-10.2); NEUT % 90.4 % (42.8-82.8); PLATELET COUNT 196 K/MM3 (134-434); RDW 14.3 % (11.9-15.9); WHITE BLOOD COUNT 28.3 K/mm3 (4.0-10.0)
[2019-10-02 10:10] LABS: BILIRUBIN,TOTAL 1.4 mg/dL (0.2-1); BLOOD UREA NITROGEN 16.1 mg/dL (7-18); CALCIUM 8.4 mg/dL (8.5-10.1); CREATININE 0.7 mg/dL (0.55-1.3); MAGNESIUM 2.1 mg/dL (1.8-2.4); PHOSPHOROUS 1.8 mg/dL (2.5-4.9); POTASSIUM 4.2 mmol/L (3.5-5.1); TOT PROT 5.1 g/dl (6.4-8.2)
[2019-10-02] MEDS ORDERED: MEROPENEM 1 GM VIAL (RESTRICTED TO ID) IVPB ONE ×2 (10:21→17:15)
[2019-10-02] MEDS ORDERED: DEXTROSE 5%-WATER 100 ML IVPB ONE ×2 (10:22→17:16)
[2019-10-02] MEDS: PANTOPRAZOLE SODIUM 40 MG VIAL IVPUSH SCH (10:28)
[2019-10-02] MEDS: ENOXAPARIN NA (PORCINE) 40 MG/0.4 ML DISP.SYRIN SQ SCH (10:29)
[2019-10-02 11:14] LABS: ARTERIAL BLD GAS O2 SATURATION 95.2 mmHg (95-98); ARTERIAL BLOOD GAS BASE EXCESS 1.2 mmol/L (-2-2); ARTERIAL BLOOD GAS PO2 82.3 mmHg (80-100)
[2019-10-02 11:20] LABS: ALLENS TEST POSITIVE
[2019-10-02 11:22] LABS: VENT MODE S/T; VENT RATE 14
[2019-10-02 11:57] LABS: PLATELET ESTIMATE ADEQUATE
[2019-10-02] MEDS ORDERED: SODIUM PHOSPHATE - 0 MM in SODIUM CHLORIDE 250 ML IVPB ONE (12:08)
[2019-10-02] MEDS ORDERED: SODIUM PHOSPHATE - 30 MM in SODIUM CHLORIDE 250 ML IVPB ONE (12:30)
[2019-10-02] MEDS: MUPIROCIN 2% TOPICAL OINTMENT FOR DECOLONIZATION NS SCH ×2 (12:51→21:06)
[2019-10-02] MEDS ORDERED: morphine SULFATE 4 MG/ML VIAL IVPUSH ONE (16:17)
[2019-10-02] MEDS: CHLORHEXIDINE GLUCONATE 4% CLEANSER FOR DECOLONIZATION TP SCH (21:06)
[2019-10-03] MEDS: morphine SULFATE 4 MG/ML VIAL IVPUSH PRN ×2 (00:23→08:05)
[2019-10-03] MEDS: MEROPENEM 1 GM in DEXTROSE 5%-WATER 100 ML IVPB SCH ×2 (01:08→10:26)
[2019-10-03] MEDS ORDERED: MEROPENEM 1 GM VIAL (RESTRICTED TO ID) IVPB ONE ×2 (02:19→10:17)
[2019-10-03] MEDS ORDERED: DEXTROSE 5%-WATER 100 ML IVPB ONE ×2 (02:19→10:17)
[2019-10-03 06:10] LABS: ARTERIAL BLOOD GAS BASE EXCESS 2.9 mmol/L (-2-2); ARTERIAL BLOOD GAS PO2 76.7 mmHg (80-100); ARTERIAL BLOOD GAS pH 7.319 (7.350-7.450)
[2019-10-03 06:12] LABS: ALLENS TEST POSITIVE
[2019-10-03 06:13] LABS: VENT MODE S/T; VENT RATE 14
[2019-10-03 06:35] LABS: BASO % 0.1 % (0-2.0); EOS % 0.1 % (0-4.5); HEMATOCRIT 41.9 % (35.4-49); HEMOGLOBIN 13.5 GM/dL (11.7-16.9); LYMPH % 3.4 % (8-40); MCH 27.6 pg (25.7-33.7); MCHC 32.2 g/dl (32.0-35.9); MEAN CELL VOLUME 85.9 fl (80-96); MEAN PLT VOLUME 7.6 fl (7.5-11.1); MONO % 6.2 % (3.8-10.2); NEUT % 90.2 % (42.8-82.8); PLATELET COUNT 200 K/MM3 (134-434); RBC 4.87 M/mm3 (4.00-5.60); RDW 14.7 % (11.9-15.9); WHITE BLOOD COUNT 24.9 K/mm3 (4.0-10.0)
[2019-10-03] MEDS: INSULIN SLIDING SCALE (NOVOLOG) 1 VIAL SQ SCH ×2 (06:40→10:44)
[2019-10-03 07:09] LABS: BILIRUBIN,TOTAL 1.2 mg/dL (0.2-1); BLOOD UREA NITROGEN 19.3 mg/dL (7-18); CALCIUM 8.2 mg/dL (8.5-10.1); CREATININE 0.7 mg/dL (0.55-1.3); MAGNESIUM 2.4 mg/dL (1.8-2.4); PHOSPHOROUS 2.2 mg/dL (2.5-4.9); POTASSIUM 4.1 mmol/L (3.5-5.1); TOT PROT 5.2 g/dl (6.4-8.2)
[2019-10-03] MEDS: LACTATED RINGERS SOLUTION 1,000 ML/1,000 ML INFUS.BAG IV SCH (08:20)
[2019-10-03 10:21] LABS: ANISOCYTOSIS 1+; MACROCYTOSIS 0; OVALOCYTE 1+; PLATELET ESTIMATE NORMAL; TEAR DROP CELLS 1+
[2019-10-03] MEDS: MUPIROCIN 2% TOPICAL OINTMENT FOR DECOLONIZATION NS SCH (10:24)
[2019-10-03] MEDS ORDERED: morphine SULFATE 4 MG/ML VIAL IVPUSH PRN (10:25)
[2019-10-03] MEDS: ENOXAPARIN NA (PORCINE) 40 MG/0.4 ML DISP.SYRIN SQ SCH (10:25)
[2019-10-03] MEDS: PANTOPRAZOLE SODIUM 40 MG VIAL IVPUSH SCH (10:32)
[2019-10-03 15:07] VITALS: BP 164/95; PULSE 109; TEMP 99.3
== END 2019-10-03 15:40 | disposition short-term general hospital (02) | DRG 438 ==
LOC: JER 06:52 → JERBED 10:10 → J5S 13:49 → JICU 09-30 04:59
PROVIDERS: ADMIT Internal Medicine; ATTEND Internal Medicine Pulmonary Disease
PROC: 02H633Z Insertion of Infusion Device into Right Atrium, Percutaneous Approach (ICD-10-PCS; principal; 2019-09-29)
PROC: B548ZZA Ultrasonography of Superior Vena Cava, Guidance (ICD-10-PCS; 2019-09-29)
PROC: 5A09457 Assistance with Respiratory Ventilation, 24-96 Consecutive Hours, Continuous Positive Airway Pressure (ICD-10-PCS; 2019-10-01)
DX: K85.10 Biliary acute pancreatitis without necrosis or infection (principal); J96.90 Respiratory failure, unspecified, unspecified whether with hypoxia or hypercapnia; J98.11 Atelectasis; E87.2 Acidosis; J90 Pleural effusion, not elsewhere classified; K56.7 Ileus, unspecified; K56.609 Unspecified intestinal obstruction, unspecified as to partial versus complete obstruction; K85.90 Acute pancreatitis without necrosis or infection, unspecified; E11.9 Type 2 diabetes mellitus without complications; E78.5 Hyperlipidemia, unspecified; K29.70 Gastritis, unspecified, without bleeding; K21.9 Gastro-esophageal reflux disease without esophagitis; Z79.84 Long term (current) use of oral hypoglycemic drugs; K76.0 Fatty (change of) liver, not elsewhere classified; E87.70 Fluid overload, unspecified; K80.20 Calculus of gallbladder without cholecystitis without obstruction; R74.0 Nonspecific elevation of levels of transaminase and lactic acid dehydrogenase [LDH]; R00.0 Tachycardia, unspecified; D72.829 Elevated white blood cell count, unspecified; Z11.59 Encounter for screening for other viral diseases
CPT/HCPCS: 36415; 36600; 71045-TC-FY; 71275-TC; 74018-TC-FY; 74177-TC; 74182-TC; 76705-TC; 80053; 80061; 82140; 82550; 82728; 82787; 82803; 82962; 83605; 83615; 83690; 83721; 83735; 84100; 84443; 84484; 85025; 85379; 85610; 85730; 86140; 86682; 86850; 86900; 86901; 87040; 87086; 93005; 93010; 94660; 99285-25; J0131; Q9967; U0003